=== PATIENT | male | born 1985 | race African-American/Black ===

== ENCOUNTER 2021-05-12 09:34 | Emergency (ER) | payer SELFPAY ==
[~2021-05-12] VITALS: Ht 180.3 cm; Wt 79.5 kg
[2021-05-12 10:09] LABS: HEMATOCRIT 44.5 % (39.0-50.0); HEMOGLOBIN 14.9 g/dl (14.0-18.0); IMMATURE GRANULOCYTES 0.3 % (0.0-5.0); MEAN CELL VOLUME 95.1 fL CALC (80.0-100.0); MEAN CORPUSCULAR HGB 31.8 pG CALC (26.0-32.0); MEAN CORPUSCULAR HGB CONC 33.5 g/dL CAL (32.0-36.0); NEUT# 2.81 thou/uL (1.82-7.42); RED BLOOD COUNT 4.68 mill/uL (4.70-6.10); RED CELL DISTRI WIDTH 10.9 % (11.5-15.5)
[2021-05-12 10:20] LABS: ALBUMIN 4.6 g/dL (3.2-5.0); ALKALINE PHOSPHATASE 65 u/l (38-126); ANION GAP 13 (6-22 (CALC)); BILIRUBIN, TOTAL 0.5 mg/dL (0.0-1.4); BUN 15 mg/dL (9-20); BUN/CREATININE RATIO 14 (12-20 (CALC)); CARBON DIOXIDE 28 mmol/l (22-30); CHLORIDE 101 mmol/l (95-108); CREATININE 1.1 mg/dL (0.7-1.3); GFR > 60 ML/MIN (>=60 (CALC)); GFR FOR AFR.AMER. > 60 ML/MIN (>=60 (CALC)); LIPASE 66 u/l (23-300); POTASSIUM 3.7 mmol/l (3.5-5.1); SGOT/AST 27 u/l (17-59); SODIUM 139 mmol/l (137-146); TOTAL PROTEIN 8.5 g/dL (6.3-8.2)
[2021-05-12 10:33] LABS: MYOGLOBIN 19 ng/mL (0 - 121)
[2021-05-12 13:51] VITALS: BP 120/76
== END 2021-05-12 14:09 | disposition home or self-care (01) | DRG 313 ==
LOC: ED 09:34
PROVIDERS: Emergency Medicine
DX: R07.89 Other chest pain (principal); Z80.9 Family history of malignant neoplasm, unspecified